=== PATIENT | male | born 1990 | race African-American/Black ===

== ENCOUNTER 2016-09-05 22:53 | Emergency (ER) | payer OTHER ==
[~2016-09-05] VITALS: Ht 175.3 cm; Wt 81.8 kg
[2016-09-05 23:02] VITALS: Ht 175.3 cm; Wt 81.8 kg
[2016-09-06] MEDS ORDERED: DIPHTH/TET/ACEL PERTUSS (ADULT) 0.5 ML VIAL IM* ONE (03:00)
[2016-09-06] MEDS ORDERED: HYDROCODONE/APAP (10/325) TAB PO ONE (03:00)
[2016-09-06 03:27] LABS: URINE BLOOD (Dip) POC Negative (NEGATIVE)
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
--- NOTE | 2016-09-06 04:46 | RADRPT ---
PROCEDURE: LUMBAR SPINE - 3 VIEWS CLINICAL INDICATION: 26-year-old male with back pain. TECHNIQUE: AP, lateral and cone-down lateral view of the lumbar spine were obtained. The images we re reviewed on a PACS workstation. COMPARISON: Thoracic spine obtained concurrently. FINDINGS: The lumbar vertebral bodies and disk spaces have normal heights and anatomic alignment. No evidence of fracture or subluxation is seen. No significant spondylolisthesis is seen. The partially visualiz ed sacrum is unremarkable. The sacroiliac joints are intact. IMPRESSION: Unremarkable lumbar spine radiographs. .João Ferguson MD, MD Date Time Electronically viewed and signed by .João Ferguson MD, on 09/06/2016 04:46 .M/
--- NOTE | 2016-09-06 04:47 | RADRPT ---
PROCEDURE: LEFT ELBOW - 3 VIEWS CLINICAL INDICATION: 26-year-old male with left elbow pain. TECHNIQUE: AP, lateral and oblique views of the left elbow were obtained. The images were viewed on a PACS workstation. COMPARISON: None. FINDINGS: There is normal mineralization and alignment. No fracture or osseous lesion is identified. There are normal joints without evidence of arthritis or effusion. No radiopaque foreign body is visualized. IMPRESSION: Unremarkable left elbow radiographs. .João Ferguson MD, MD Date Time Electronically viewed and signed by .João Ferguson MD, MD on 09/06/2016 04:47 .M/
--- NOTE | 2016-09-06 04:47 | RADRPT ---
PROCEDURE: LEFT SHOULDER CLINICAL INDICATION: 26-year-old male with left shoulder pain. TECHNIQUE: Two-views of the left shoulder were obtained. The images reviewed on a PACS workstation . COMPARISON: None. FINDINGS: No evidence of fracture or dislocation is seen. The glenohumeral and acromioclavicular joint spaces appear preserved. Limited views of the clavicle and thorax are unremarkable. IMPRESSION: Unremarkable left shoulder radiographs. .João Ferguson MD, MD Date Time Electronically viewed and signed by .João Ferguson MD, MD on 09/06/2016 04:46 .M/
--- NOTE | 2016-09-06 04:48 | RADRPT ---
PROCEDURE: THORACIC SPINE - 3 VIEWS CLINICAL INDICATION: 26-year-old male with back pain. TECHNIQUE: AP and lateral views of the thoracic spine were obtained. The images were reviewed on a PACS workstation. COMPARISON: Lumbar spine radiographs obtained concurrently. FINDINGS: The thoracic vertebral bodies and disk spaces have normal heights and anatomic alignment. There is no evidence for an acute fracture or subluxation. The bone marrow mineralization is within normal l imits. IMPRESSION: Unremarkable thoracic spine radiographs. .João Ferguson MD, Date Time Electronically viewed and signed by .João Ferguson MD, on 09/06/2016 04:48 .M/
[2016-09-06] MEDS ORDERED: KETOROLAC 60 MG INJ IM STA (04:58)
[2016-09-06] MEDS ORDERED: IBUP-1542 PO (05:03)
[2016-09-06] MEDS ORDERED: HYDR-902 PO (05:03)
[2016-09-06] MEDS ORDERED: CYCL-319 PO (05:03)
[2016-09-06 05:19] VITALS: BP 117/81; PULSE 67; RESP 16
== END 2016-09-06 05:40 | disposition home or self-care (01) ==
LOC: FTE 22:53
DX: S20.222A Contusion of left back wall of thorax, initial encounter (principal); F17.210 Nicotine dependence, cigarettes, uncomplicated; S40.012A Contusion of left shoulder, initial encounter; S50.02XA Contusion of left elbow, initial encounter; W18.39XA Other fall on same level, initial encounter; Y92.9 Unspecified place or not applicable; Z23 Encounter for immunization; Z91.010 Allergy to peanuts
CPT/HCPCS: 72072; 72100; 73030; 73080; 81003; 90471; 90715; 96372; J1885; Z7502; Z7610

== ENCOUNTER 2016-09-18 11:13 | Emergency (ER) | payer OTHER ==
[~2016-09-18] VITALS: Wt 78.0 kg
[~2016-09-18 11:13] MED LIST: CYCL-319 PO; HYDR-902 PO; IBUP-1542 PO
[2016-09-18] MEDS ORDERED: KETOROLAC 30 MG INJ IM STA (11:53)
[2016-09-18] MEDS ORDERED: NAPR-260 PO (12:06)
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
== END 2016-09-18 12:22 | disposition home or self-care (01) ==
LOC: FTE 11:13
DX: M25.512 Pain in left shoulder (principal); Z85.47 Personal history of malignant neoplasm of testis; Z91.010 Allergy to peanuts; Z87.891 Personal history of nicotine dependence
CPT/HCPCS: 96372; J1885; Z7502

== ENCOUNTER 2019-04-12 04:18 | Emergency (ER) | payer OTHER ==
[~2019-04-12] VITALS: Ht 175.3 cm; Wt 89.0 kg
[~2019-04-12 04:18] MED LIST changes: -CYCL-319 PO; +CYCL10TA7 PO; +HYDR-3980 PO; -HYDR-902 PO; +NAPR-985 PO
[2019-04-12 04:26] VITALS: Ht 175.3 cm; Wt 89.0 kg
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
[2019-04-12] MEDS ORDERED: ONDANSETRON 4 MG INJ IV STA (04:42)
[2019-04-12] MEDS ORDERED: SOD CHLORIDE 0.9% 1,000 ML IV ONE (05:00)
[2019-04-12 06:25] VITALS: BP 138/90; PULSE 79; RESP 20
== END 2019-04-12 06:38 | disposition home or self-care (01) ==
LOC: E/R 04:18
DX: S06.0X0A Concussion without loss of consciousness, initial encounter (principal); S19.9XXA Unspecified injury of neck, initial encounter; S49.92XA Unspecified injury of left shoulder and upper arm, initial encounter; S99.912A Unspecified injury of left ankle, initial encounter; Y04.0XXA Assault by unarmed brawl or fight, initial encounter; Z85.47 Personal history of malignant neoplasm of testis; Z87.891 Personal history of nicotine dependence; Z91.010 Allergy to peanuts
CPT/HCPCS: 70450; 72125; 73030; 73610; J2405; J7030; 96374